=== PATIENT | male | born 1945 | race Caucasian/White ===

== ENCOUNTER 2024-06-29 07:11 | Day surgery (SDC) | payer MEDICARE ==
[~2024-06-29] VITALS: Ht 177.8 cm; Wt 100.7 kg
[~2024-06-29 07:11] MED LIST: ALENDRONATE35 MG PO; AMLODIPINE BESYL5 MG PO; ANDROGEL TD; ANDROGEL1 % TD; ATORVASTATIN CA10 MG PO; CARDURA XL4 MG PO; DOXAZOSIN1 M1 OR; FLUTICASONE50 MCG; NORVASC OR; TOPROL XL50 MG PO; XARELTO20 MG PO
[2024-06-29] MEDS ORDERED: LACTATED RINGER'S 1,000 ML IV ONE (07:17)
[2024-06-29 09:38] VITALS: BP 116/79
[2024-06-29] MEDS ORDERED: PROPOFOL 200 MG/20 ML VIAL IV ONE (11:49)
[2024-06-29] MEDS ORDERED: GLYCOPYRROLATE 0.2 MG/ML IV ONE (11:49)
[2024-06-29] MEDS ORDERED: LIDOCAINE HCL 2% 2ML SDV IV ONE (11:49)
== END 2024-06-29 09:35 | disposition home or self-care (01) ==
LOC: ENDO 07:11 → ORM 11:15 → ENDO 11:15
PROVIDERS: ATTEND Internal Medicine Gastroenterology
PROC: 0DBK8ZX Excision of Ascending Colon, Via Natural or Artificial Opening Endoscopic, Diagnostic (ICD-10-PCS; principal; 2024-06-29)
PROC: 0DBL8ZX Excision of Transverse Colon, Via Natural or Artificial Opening Endoscopic, Diagnostic (ICD-10-PCS; 2024-06-29)
PROC: 0DBM8ZX Excision of Descending Colon, Via Natural or Artificial Opening Endoscopic, Diagnostic (ICD-10-PCS; 2024-06-29)
PROC: 0DBH8ZX Excision of Cecum, Via Natural or Artificial Opening Endoscopic, Diagnostic (ICD-10-PCS; 2024-06-29)
DX: Z12.11 Encounter for screening for malignant neoplasm of colon (principal); D12.2 Benign neoplasm of ascending colon; D12.0 Benign neoplasm of cecum; D12.3 Benign neoplasm of transverse colon; K51.40 Inflammatory polyps of colon without complications; K57.30 Diverticulosis of large intestine without perforation or abscess without bleeding; K64.8 Other hemorrhoids; I10 Essential (primary) hypertension; I48.91 Unspecified atrial fibrillation; G47.30 Sleep apnea, unspecified; Z86.010 Personal history of colon polyps; Z87.891 Personal history of nicotine dependence

== ENCOUNTER 2024-07-01 09:26 | Inpatient (IN) | payer MEDICARE ==
[~2024-07-01] VITALS: Ht 177.8 cm; Wt 98.6 kg
[2024-07-01] VITALS (32 sets, daily range): BP systolic 86–122; BP diastolic 56–87
[2024-07-01 10:02] LABS: BASO% 0.6 % (0-3); EOS% 1.9 % (0-8); HEMATOCRIT 39.3 % (39.0-50.0); HEMOGLOBIN 12.7 g/dl (14.0-18.0); IMMATURE GRANULOCYTES 0.1 % (0.0-5.0); LYMPH% 21.2 % (15-41); MEAN CELL VOLUME 93.3 fL CALC (80.0-100.0); MEAN CORPUSCULAR HGB 30.2 pG CALC (26.0-32.0); MEAN CORPUSCULAR HGB CONC 32.3 g/dL CAL (32.0-36.0); MONO% 11.4 % (2-13); NEUT# 6.84 thou/uL (1.82-7.42); NEUT% 64.8 % (42-76); RED BLOOD COUNT 4.21 mill/uL (4.70-6.10); RED CELL DISTRI WIDTH 12.5 % (11.5-15.5)
[2024-07-01 10:21] LABS: ALBUMIN 4.2 g/dL (3.2-5.0); BILIRUBIN, TOTAL 0.7 mg/dL (0.2-1.3); POTASSIUM 4.5 mmol/l (3.5-5.1); TOTAL PROTEIN 7.5 g/dL (6.3-8.2)
[2024-07-01 11:46] LABS: INTERNATIONAL NORMALIZED RATIO 1.2 RATIO (0.7-1.3)
[2024-07-01 11:49] LABS: PROTHROMBIN TIME 11.6 SECONDS (9.0-12.5)
[2024-07-01] MEDS ORDERED: DiphenhydrAMINE HCL 50 MG/ML SDV IV ONE (11:50)
[2024-07-01] MEDS ORDERED: methylPREDNISolone SODIUM SUCC 125 MG/2 ML SDV IV ONE (11:50)
[2024-07-01 13:38] LABS: HEMATOCRIT 35.7 % (39.0-50.0); HEMOGLOBIN 11.5 g/dl (14.0-18.0)
[2024-07-01] MEDS ORDERED: SODIUM CHLORIDE 0.9% 500 ML IV ONE (14:20)
[2024-07-01 15:46] LABS: HEMOGLOBIN 11.1 g/dl (14.0-18.0)
[2024-07-01] MEDS ORDERED: ACETAMINOPHEN 325 MG/TAB PO PRN (17:10)
[2024-07-01] MEDS ORDERED: SODIUM CHLORIDE 0.9% 1,000 ML IV PRN (17:10)
[2024-07-01] MEDS ORDERED: MAGNESIUM HYDROXIDE 30 ML UDC PO PRN (17:10)
[2024-07-01 18:19] LABS: HEMATOCRIT 34.2 % (39.0-50.0); HEMOGLOBIN 11.1 g/dl (14.0-18.0)
[2024-07-01] MEDS ORDERED: ATORVASTATIN CALCIUM 10 MG/TAB PO SCH (21:00)
[2024-07-02] VITALS (14 sets, daily range): BP systolic 91–123; BP diastolic 58–75
[2024-07-02 00:44] LABS: HEMATOCRIT 32.2 % (39.0-50.0); HEMOGLOBIN 10.4 g/dl (14.0-18.0)
[2024-07-02 05:29] LABS: HEMATOCRIT 30.5 % (39.0-50.0); HEMOGLOBIN 9.9 g/dl (14.0-18.0); MEAN CELL VOLUME 94.1 fL CALC (80.0-100.0); MEAN CORPUSCULAR HGB 30.6 pG CALC (26.0-32.0); MEAN CORPUSCULAR HGB CONC 32.5 g/dL CAL (32.0-36.0); RED BLOOD COUNT 3.24 mill/uL (4.70-6.10)
[2024-07-02 05:34] LABS: HEMOGLOBIN 9.9 g/dl (14.0-18.0)
[2024-07-02 05:48] LABS: ALBUMIN 3.4 g/dL (3.2-5.0); BILIRUBIN, TOTAL 0.5 mg/dL (0.2-1.3); CREATININE 0.8 mg/dL (0.7-1.3); POTASSIUM 4.3 mmol/l (3.5-5.1)
[2024-07-02] MEDS ORDERED: METOPROLOL SUCCINATE 50 MG/TAB PO SCH (09:00)
[2024-07-02] MEDS ORDERED: amLODIPine BESYLATE 5 MG/TAB PO SCH (09:00)
[2024-07-02 12:08] LABS: HEMATOCRIT 31.2 % (39.0-50.0)
[2024-07-02] MEDS ORDERED: SUCCINYLCHOLINE CHLORIDE 20 MG/ML 10ML VIAL IV ONE (14:49)
[2024-07-02] MEDS ORDERED: SODIUM CHLORIDE 0.9% 1,000 ML BAG IV ONE (14:49)
[2024-07-02] MEDS ORDERED: ROCURONIUM BROMIDE 10 MG/ML 5ML VIAL IV ONE (14:49)
[2024-07-02] MEDS ORDERED: PROPOFOL 200 MG/20 ML VIAL IV ONE (14:49)
[2024-07-02] MEDS ORDERED: LIDOCAINE HCL 2% 2ML SDV IV ONE (14:49)
[2024-07-02] MEDS ORDERED: SUGAMMADEX SODIUM 200 MG/2 ML SDV IV ONE (14:49)
[2024-07-02 18:55] LABS: HEMATOCRIT 23.7 % (39.0-50.0); HEMOGLOBIN 7.6 g/dl (14.0-18.0)
[2024-07-02] MEDS ORDERED: SODIUM CHLORIDE 0.9% 500 ML IV ONE ×2 (20:25→23:20)
[2024-07-02] MEDS ORDERED: SODIUM CHLORIDE 0.9% 1,000 ML IV PRN (22:40)
[2024-07-02 22:57] LABS: HEMATOCRIT 24.8 % (39.0-50.0); HEMOGLOBIN 8.1 g/dl (14.0-18.0)
[2024-07-02] MEDS ORDERED: SODIUM CHLORIDE 0.9% 0 ML IV ONE (23:27)
[2024-07-02] MEDS ORDERED: SODIUM CHLORIDE 0.9% 10 ML SYR ONE (23:38)
[2024-07-02] MEDS ORDERED: SODIUM CHLORIDE 0.9% 1,000 ML IV ONE (23:40)
[2024-07-03] VITALS (58 sets, daily range): BP systolic 87–131; BP diastolic 41–100
[2024-07-03] MEDS ORDERED: FAMOTIDINE 10MG/ML 2ML SDV IV ONE (00:07)
[2024-07-03] MEDS ORDERED: STERILE WATER FOR IRRIGATION 1,000 ML BTL IR ONE (01:47)
[2024-07-03 01:54] LABS: HEMATOCRIT 26.4 % (39.0-50.0); HEMOGLOBIN 8.7 g/dl (14.0-18.0)
[2024-07-03 06:30] LABS: HEMATOCRIT 23.6 % (39.0-50.0)
[2024-07-03 08:00] LABS: CREATININE 0.8 mg/dL (0.7-1.3); POTASSIUM 4.4 mmol/l (3.5-5.1)
[2024-07-03 08:01] LABS: ALBUMIN 2.3 g/dL (3.2-5.0); BILIRUBIN, TOTAL 1.1 mg/dL (0.2-1.3); TOTAL PROTEIN 4.5 g/dL (6.3-8.2)
[2024-07-03 08:04] LABS: HEMATOCRIT 23.6 % (39.0-50.0); MEAN CELL VOLUME 92.9 fL CALC (80.0-100.0); MEAN CORPUSCULAR HGB 31.5 pG CALC (26.0-32.0); MEAN CORPUSCULAR HGB CONC 33.9 g/dL CAL (32.0-36.0); RED BLOOD COUNT 2.54 mill/uL (4.70-6.10); RED CELL DISTRI WIDTH 13.9 % (11.5-15.5)
[2024-07-03 12:11] LABS: HEMATOCRIT 22.6 % (39.0-50.0); HEMOGLOBIN 7.6 g/dl (14.0-18.0)
[2024-07-03] MEDS ORDERED: SODIUM CHLORIDE 0.9% 500 ML IV PRN (14:30)
[2024-07-03 18:12] LABS: HEMATOCRIT 25.2 % (39.0-50.0); HEMOGLOBIN 8.5 g/dl (14.0-18.0)
[2024-07-04] VITALS (30 sets, daily range): BP systolic 90–126; BP diastolic 45–82
[2024-07-04 00:34] LABS: HEMATOCRIT 23.6 % (39.0-50.0)
[2024-07-04 05:03] LABS: HEMATOCRIT 23.5 % (39.0-50.0); HEMOGLOBIN 8.1 g/dl (14.0-18.0); MEAN CELL VOLUME 91.8 fL CALC (80.0-100.0); MEAN CORPUSCULAR HGB 31.6 pG CALC (26.0-32.0); MEAN CORPUSCULAR HGB CONC 34.5 g/dL CAL (32.0-36.0); RED BLOOD COUNT 2.56 mill/uL (4.70-6.10); RED CELL DISTRI WIDTH 13.8 % (11.5-15.5)
[2024-07-04 05:25] LABS: ALBUMIN 2.6 g/dL (3.2-5.0); BILIRUBIN, TOTAL 0.9 mg/dL (0.2-1.3); CREATININE 0.8 mg/dL (0.7-1.3); POTASSIUM 3.7 mmol/l (3.5-5.1); TOTAL PROTEIN 4.7 g/dL (6.3-8.2)
[2024-07-04 11:32] LABS: HEMATOCRIT 24.9 % (39.0-50.0); HEMOGLOBIN 8.2 g/dl (14.0-18.0)
[2024-07-04] MEDS ORDERED: SODIUM CHLORIDE 0.9% 500 ML IV ONE (13:45)
== END 2024-07-04 15:30 | disposition short-term general hospital (02) | DRG 920 ==
LOC: ED 09:26 → ED-I 11:12 → ED 16:26 → MS2 16:27 → ICU 07-02 22:00 → MS2 07-02 22:00 → ICU 07-02 22:01
PROVIDERS: Family Medicine; ADMIT Internal Medicine; ATTEND Internal Medicine
PROC: 30233N1 Transfusion of Nonautologous Red Blood Cells into Peripheral Vein, Percutaneous Approach (ICD-10-PCS; principal; 2024-07-02)
PROC: 30233N1 Transfusion of Nonautologous Red Blood Cells into Peripheral Vein, Percutaneous Approach (ICD-10-PCS; 2024-07-02)
PROC: 0W3P8ZZ Control Bleeding in Gastrointestinal Tract, Via Natural or Artificial Opening Endoscopic (ICD-10-PCS; 2024-07-02)
PROC: 30233N1 Transfusion of Nonautologous Red Blood Cells into Peripheral Vein, Percutaneous Approach (ICD-10-PCS; 2024-07-03)
PROC: 30233N1 Transfusion of Nonautologous Red Blood Cells into Peripheral Vein, Percutaneous Approach (ICD-10-PCS; 2024-07-04)
DX: K91.840 Postprocedural hemorrhage of a digestive system organ or structure following a digestive system procedure (principal); D62 Acute posthemorrhagic anemia; K57.30 Diverticulosis of large intestine without perforation or abscess without bleeding; I10 Essential (primary) hypertension; I48.0 Paroxysmal atrial fibrillation; E27.9 Disorder of adrenal gland, unspecified; Y84.8 Other medical procedures as the cause of abnormal reaction of the patient, or of later complication, without mention of misadventure at the time of the procedure; Z79.01 Long term (current) use of anticoagulants; Z86.010 Personal history of colon polyps; Z91.013 Allergy to seafood
CPT/HCPCS: P9016; Q9967